=== PATIENT | female | born 1990 | race Caucasian/White ===

== ENCOUNTER → 2019-06-09 | Outpatient (CLI) | payer OTHER ==
[2019-06-10 14:07] LABS: ANTINUCLEAR ANTIBODIES Negative (Negative)
[2019-06-10 19:17] LABS: MITOCHONDRIAL (M2) ANTIBODY <20.0 Units (0.0-20.0)
== END ==
LOC: OD 13:38
PROVIDERS: ATTEND Internal Medicine Gastroenterology
DX: R17 Unspecified jaundice (principal)
CPT/HCPCS: 36415; 81332; 82390; 83540; 86038; 86256